=== PATIENT | male | born 1960 | race Two or more races ===

== ENCOUNTER → 2018-06-06 | Outpatient (CLI) | payer MEDICARE, MEDICAID | END | disposition home or self-care (01) | LOC: CARD 11:58 | PROVIDERS: ATTEND Psychiatry & Neurology Neurology | DX: H46.8 Other optic neuritis (principal) | CPT/HCPCS: 95930 ==

== ENCOUNTER 2019-03-20 09:54 | Emergency (ER) | payer MEDICARE, OTHER ==
[~2019-03-20] VITALS: Ht 175.3 cm; Wt 106.0 kg
[2019-03-20 10:04] VITALS: BP 133/77
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
[2019-03-20] MEDS ORDERED: PIOG45TA64 PO (10:33)
[2019-03-20] MEDS ORDERED: LISI-167 PO (10:33)
[2019-03-20] MEDS ORDERED: INSU100C SQ-INSULIN (10:35)
[2019-03-20] MEDS ORDERED: ONDANSETRON ODT 4 MG ONE (10:38)
[2019-03-20] MEDS ORDERED: KETOROLAC 30 MG/1 ML ONE (10:38)
[2019-03-20] MEDS ORDERED: ONDANSETRON ODT 4 MG PO ONE (11:00)
[2019-03-20] MEDS ORDERED: KETOROLAC 30 MG/1 ML IM ONE (11:00)
--- NOTE | 2019-03-20 11:23 | NUR ---
Patient returned from CT and Xray, NAD noted. RR even and unlabored, watching TV. Medicated per order
--- NOTE | 2019-03-20 11:43 | NUR ---
Patient discharged home, discharge instructions provided all questions and concerns addressed. Patient requested a small piece of gauze to place over abrasion on side of nose to decrease the pain caused by him wearing his glasses. Ambulatory with steady gait, uses cane. RR even and unlabored. speech clear.
== END 2019-03-20 11:58 | disposition home or self-care (01) ==
LOC: ED 11:45
DX: S40.012A Contusion of left shoulder, initial encounter (principal); S00.31XA Abrasion of nose, initial encounter; M54.2 Cervicalgia; W23.1XXA Caught, crushed, jammed, or pinched between stationary objects, initial encounter; Y93.89 Activity, other specified; Y92.009 Unspecified place in unspecified non-institutional (private) residence as the place of occurrence of the external cause; Y99.8 Other external cause status
CPT/HCPCS: 70450; 72125; 73030; 96372; 99284; J1885; Q0162

== ENCOUNTER → 2019-07-06 | Outpatient (CLI) | payer MEDICARE, MEDICAID ==
[~2019-07-06] MED LIST: INSU100C SQ-INSULIN; LISI-167 PO; OMNIPAQUE 350 MG/ML, 100ML BOTTLE ONE; PIOG45TA64 PO
== END | disposition home or self-care (01) ==
LOC: CFH 14:07
PROVIDERS: ATTEND Registered Nurse
DX: K76.0 Fatty (change of) liver, not elsewhere classified (principal); N28.1 Cyst of kidney, acquired; D17.71 Benign lipomatous neoplasm of kidney; J32.0 Chronic maxillary sinusitis; D17.79 Benign lipomatous neoplasm of other sites
CPT/HCPCS: 70450; 74170; 82565; Q9967

== ENCOUNTER 2020-04-05 09:10 | Outpatient (CLI) | payer MEDICARE, MEDICAID ==
[~2020-04-05 09:10] MED LIST changes: -OMNIPAQUE 350 MG/ML, 100ML BOTTLE ONE
[2020-04-05] MEDS ORDERED: ATOR-2 PO (10:19)
[2020-04-05] MEDS ORDERED: METF10007 PO (10:19)
[2020-04-05] MEDS ORDERED: FLUT200B INH (10:19)
[2020-04-05] MEDS ORDERED: ALBU8.5H8 INH (10:19)
[2020-04-05] MEDS ORDERED: FLUT9.9S NAS (10:19)
[2020-04-05] MEDS ORDERED: GABA300C PO (10:19)
[2020-04-05] MEDS ORDERED: DULA0.75 INJ (10:19)
[2020-04-05] MEDS ORDERED: OMEP40CA42 PO (10:19)
[2020-04-05] MEDS ORDERED: TIZA4CAP PO (10:19)
== END 2020-04-05 23:59 | disposition home or self-care (01) ==
LOC: STAR 09:10
PROVIDERS: ATTEND Internal Medicine Gastroenterology
DX: Z02.9 Encounter for administrative examinations, unspecified (principal)